=== PATIENT | female | born 1985 ===

== ENCOUNTER 2017-11-02 21:22 | Outpatient (REF) | payer MEDICAID, SELFPAY | END 2017-11-02 21:42 | LOC: NCHCN 21:22 | PROVIDERS: PCP Nurse Practitioner Family; Visit Provider Nurse Practitioner Family | DX: L02.92 Furuncle, unspecified (principal) | CPT/HCPCS: 87070; 87205 ==

== ENCOUNTER 2019-12-17 14:34 | Outpatient (REF) | payer MEDICAID, SELFPAY ==
[2019-12-17 21:30] LABS: HCT 42.3 % (36.0-46.0); HGB 13.4 g/dL (11.2-15.7); MCH 29.7 pg (27.0-33.0); MCHC 31.7 % (32.0-36.0); MCV 93.8 fL (80-95); MPV 11.4 fL (8.0-11.0); Platelet Count 296 10^3/uL (130-400); RBC 4.51 10^6/uL (3.93-5.22); RDW 14.1 % (11.7-14.6); RDW-SD 48.5 fL
[2019-12-17 21:49] LABS: Calculated LDL 208 mg/dL (<100); Cholesterol 297 mg/dL (<200); HDL Cholesterol 25 mg/dL (40-60); TSH 1.31 uIU/mL (0.36-3.74); Triglyceride 323 mg/dL (<150)
[2019-12-17 22:18] LABS: Hemoglobin A1C 5.2 % (<5.7)
== END 2019-12-17 14:54 ==
LOC: NCHCN 14:34
PROVIDERS: PCP Nurse Practitioner Family; Visit Provider Nurse Practitioner Family
DX: Z13.1 Encounter for screening for diabetes mellitus (principal); Z13.220 Encounter for screening for lipoid disorders; Z87.42 Personal history of other diseases of the female genital tract
CPT/HCPCS: 80061; 85027; 83036; 84443

== ENCOUNTER 2019-12-23 10:46 | Outpatient (REF) | payer MEDICAID, SELFPAY ==
[2019-12-23 22:25] LABS: Calculated LDL 211 mg/dL (<100); Cholesterol 286 mg/dL (<200); HDL Cholesterol 32 mg/dL (40-60); Triglyceride 219 mg/dL (<150)
== END 2019-12-23 11:06 ==
LOC: NCHCN 10:46
PROVIDERS: PCP Nurse Practitioner Family; Visit Provider Nurse Practitioner Family
DX: E78.5 Hyperlipidemia, unspecified (principal)
CPT/HCPCS: 80061

== ENCOUNTER 2021-03-03 12:44 | Outpatient (REF) | payer MEDICAID, SELFPAY | END 2021-03-03 12:45 | disposition home or self-care (01) | LOC: NCHCN 12:44 | PROVIDERS: PCP Nurse Practitioner Family; Visit Provider Nurse Practitioner Family | DX: E78.5 Hyperlipidemia, unspecified (principal); L70.8 Other acne; L02.02 Furuncle of face | CPT/HCPCS: 87070; 87205 ==

== ENCOUNTER 2022-05-06 17:57 | Outpatient (REF) | payer MEDICAID, SELFPAY ==
[2022-05-06 21:40] LABS: Calculated LDL 185 mg/dL (<100); Cholesterol 248 mg/dL (<200); HDL Cholesterol 33 mg/dL (40-60); Triglyceride 154 mg/dL (<150)
== END 2022-05-06 17:58 | disposition home or self-care (01) ==
LOC: NCHCN 17:57
PROVIDERS: PCP Nurse Practitioner Family; Visit Provider Nurse Practitioner Family
DX: E78.5 Hyperlipidemia, unspecified (principal)
CPT/HCPCS: 80061